=== PATIENT | female | born 1965 | race American Indian/Alaskan Native ===

== ENCOUNTER 2020-05-11 19:11 | Emergency (ER) | payer BC, OTHER ==
[2020-05-11] MEDS ORDERED: Cyclobenzaprine 10 MG Tab PO ONE ×2 (19:12→20:13)
[2020-05-11] MEDS ORDERED: Ciprofloxacin 500 MG Tab PO ONE ×2 (19:12→20:13)
[2020-05-11 19:25] VITALS: BP 177/95; PULSE 72
[2020-05-11 19:43] LABS: ANION GAP 11.7 mEq/L (7-13); CHLORIDE,CL 105 mmol/L (98-107); SODIUM,NA 140 mmol/L (136-145)
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
[2020-05-11] MEDS ORDERED: Acetaminophen 325 MG Tab PO ONE (20:13)
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
[2020-05-11] MEDS ORDERED: Ciprofloxacin 500 MG Tab ONE (20:24)
[2020-05-11] MEDS ORDERED: Cyclobenzaprine 10 MG Tab ONE (20:25)
== END 2020-05-11 20:35 | disposition home or self-care (01) ==
LOC: DL.ED 19:11
DX: M62.838 Other muscle spasm (principal); N39.0 Urinary tract infection, site not specified; V89.2XXA Person injured in unspecified motor-vehicle accident, traffic, initial encounter; Z87.891 Personal history of nicotine dependence
CPT/HCPCS: 36415; 70450; 72125; 80053; 80305-QW; 80307; 81001; 85025; 87086; 99284-25; A9270-GY

== ENCOUNTER 2020-09-07 20:17 | Emergency (ER) | payer BC, OTHER ==
[2020-09-07 20:39] VITALS: BP 158/87; PULSE 72
[2020-09-07 21:01] LABS: ANION GAP 11.9 mEq/L (7-13); CHLORIDE,CL 105 mmol/L (98-107); SODIUM,NA 140 mmol/L (136-145)
--- NOTE | 2020-09-07 21:22 | CR ---
PROCEDURE INFORMATION: Exam: XR Chest, 1 View Exam date and time: 09/07/2020 9:00 PM Age: 55 years old Clinical indication: Other: Chest pain TECHNIQUE: Imaging protocol: XR of the chest Views: 1 view. COMPARISON: No relevant prior studies available. FINDINGS: Lungs: Unremarkable. No consolidation. Pleural space: Unremarkable. No pleural effusion. No pneumothorax. Heart/Mediastinum: Cardiomediastinal silhouette is magnified due to technique. Bones/joints: No acute abnormality or aggressive osseous lesion. IMPRESSION: Negative for acute thoracic pathology.
[2020-09-07] MEDS: GI Cocktail Oral Solution 30 ML PO ONE ×2 (21:32→21:33)
[2020-09-07] MEDS ORDERED: Famotidine 20 MG/2 ML SDV IVPUSH ONE (21:34)
--- NOTE | 2020-09-07 22:09 | EDM.PDOC ---
ED HPI GENERAL MEDICAL PROBLEM - General Chief Complaint: Abdominal Pain Stated Complaint: COVID+ Jul, CHEST PAINS Time Seen by Provider: 09/07/20 20:30 Source of Information: Reports: Patient, RN History Limitations: Reports: No Limitations - History of Present Illness INITIAL COMMENTS - FREE TEXT/NARRATIVE: COVID positive on 08/31, mild SOB no fever or chills. epigastric burning. No chest pain. Rare cough, No fever, rare chills. Epigastric Pain Score (Numeric/FACES): 5 - Related Data Allergies Allergy/AdvReac Type Severity Reaction Status Date / Time No Known Allergies Allergy Verified 09/07/20 20:39 Home Meds: Home Meds Albuterol [Proair HFA] 1 puff IH Q4H PRN #1 inhaler 06/30/20 [Rx] Albuterol/Ipratropium [DuoNeb 3.0-0.5 MG/3 ML] 3 ml .XX Q6HR PRN #60 neb 06/30/20 [Rx] Cefdinir 300 mg PO BID 10 Days #20 capsule 06/30/20 [Rx] methylPREDNISolone [Medrol Dose Pack] 4 mg PO ASDIRECTED 5 Days #1 dospk 06/30/20 [Rx] Past Medical History HEENT History: Reports: None Cardiovascular History: Reports: None Respiratory History: Reports: None Gastrointestinal History: Reports: GERD Genitourinary History: Reports: None HEALTH ECONOMIST History: Reports: None, Other (See Below) Other HEALTH ECONOMIST History: tubal Musculoskeletal History: Reports: None Neurological History: Reports: None Psychiatric History: Reports: Anxiety Endocrine/Metabolic History: Reports: None Hematologic History: Reports: None Immunologic History: Reports: None Oncologic (Cancer) History: Reports: None Dermatologic History: Reports: None - Infectious Disease History Infectious Disease History: Reports: None - Past Surgical History Head Surgeries/Procedures: Reports: None HEENT Surgical History: Reports: Oral Surgery Female Surgical History: Reports: Other (See Below) Social & Family History - Family History Family Medical History: Noncontributory Cardiac: Reports: CAD, High Cholesterol, Hypertension, [place] - Tobacco Use Tobacco Use Status *Q: Never Tobacco User Second Hand Smoke Exposure: No - Caffeine Use Caffeine Use: Reports: Soda - Recreational Drug Use Recreational Drug Use: No - Living Situation & Occupation Living situation: Reports: with Family Occupation: Employed ED ROS GENERAL - Review of Systems Review Of Systems: Comprehensive ROS is negative, except as noted in HPI. ED EXAM, GI/ABD - Physical Exam Exam: See Below Exam Limited By: No Limitations General Appearance: Alert, Anxious Eyes: Bilateral: EOMI Ears: Normal External Exam Throat/Mouth: Normal Inspection Head: Atraumatic, Normocephalic Neck: Normal Inspection Respiratory/Chest: No Respiratory Distress, Lungs Clear, Normal Breath Sounds Cardiovascular: Normal Peripheral Pulses, Regular Rate, Rhythm, No Edema GI/Abdominal Exam: Normal Bowel Sounds, Soft, Tender (mild mid epigastric) Extremities: Normal Inspection Neurological: Alert, Oriented, Normal Cognition Course - Vital Signs Last Recorded V/S: Last Vital Signs Temp 97.6 F 09/07/20 20:27 Pulse 72 09/07/20 20:27 Resp 19 09/07/20 20:27 BP 158/87 H 09/07/20 20:27 Pulse Ox 99 09/07/20 20:27 - Orders/Labs/Meds Labs: Laboratory Tests 09/07/20 09/07/20 09/07/20 Range/Units 20:35 20:35 20:35 WBC 7.0 (5.0-10.0) 10^3/uL RBC 4.45 (4.2-5.4) 10^6/uL Hgb 13.3 (12.0-16.0) g/dL Hct 41.1 (37.0-47.0) % MCV 92.4 (80-100) fL MCH 29.9 (27.0-34.0) pg MCHC 32.4 L (33.0-35.0) g/dL Plt Count 233 (150-450) 10^3/uL Neut % (Auto) 52.6 (42.2-75.2) % Lymph % (Auto) 29.8 (20.5-50.1) % [place] % (Auto) 10.7 H (2-8) % Eos % (Auto) 6.2 H (1.0-3.0) % Baso % (Auto) 0.7 (0.0-1.0) % D-Dimer, Quantitative 449 H (0-400) ng/mL Sodium 140 (136-145) mmol/L Potassium 3.9 (3.5-5.1) mmol/L Chloride 105 (98-107) mmol/L Carbon Dioxide 27 (21-32) mmol/L Anion Gap 11.9 (7-13) mEq/L BUN 8 (7-18) mg/dL Creatinine 0.90 (0.55-1.02) mg/dL Est Cr Clr Drug Dosing 62.80 mL/min Estimated GFR (MDRD) > 60 BUN/Creatinine Ratio 8.9 (No establ ref range) Glucose 97 (74-99) mg/dL Calcium 9.1 (8.5-10.1) mg/dL Total Bilirubin 0.3 (0.2-1.0) mg/dL AST 9 L (15-37) U/L ALT 30 (14-59) U/L Alkaline Phosphatase 102 (46-116) U/L Troponin I < 0.017 (0.000-0.056) ng/mL Total Protein 7.4 (6.4-8.2) g/dL Albumin 3.6 (3.4-5.0) g/dL Globulin 3.8 Albumin/Globulin Ratio 0.9 Amylase 45 (25-115) U/L Lipase 109 (73-393) U/L Meds: Medications Discontinued Medications Generic Name Dose Route Start Last Admin Trade Name Freq PRN Reason Stop Dose Admin Al Hydroxide/Mg Hydroxide 30 ml 09/07/20 21:29 09/07/20 21:33 Gi Cocktail PO 09/07/20 21:30 Not Given ONETIME ONE Famotidine 20 mg 09/07/20 21:34 09/07/20 21:49 Pepcid IVPUSH 09/07/20 21:35 Not Given ONETIME ONE - Re-Assessments/Exams Free Text/Narrative Re-Assessment/Exam: Reports sx resolved, refused GI cocktail and Pepcid. Departure - Departure Time of Disposition: 22:06 Disposition: Home, Self-Care 01 Condition: Good Clinical Impression: Dyspepsia, Anxiety - Discharge Information *PRESCRIPTION DRUG MONITORING PROGRAM REVIEWED*: No *COPY OF PRESCRIPTION DRUG MONITORING REPORT IN PATIENT FRANCIS: No Instructions: Nausea and Vomiting, Adult, [id number] Forms: ED Department Discharge Additional Instructions: bland diet limit caffeine encourage fluids follow up with primary care if mild symptoms continue urgent follow up fever chill vomiting diarrhea severe difficulty breathing Sepsis Event Note (ED) - Evaluation Sepsis Screening Result: No Definite Risk - Focused Exam Vital Signs: Vital Signs Temp Pulse Resp BP Pulse Ox 09/07/20 20:27 97.6 F 72 19 158/87 H 99
== END 2020-09-07 22:16 | disposition home or self-care (01) ==
LOC: DL.ED 20:17
DX: F41.9 Anxiety disorder, unspecified (principal); R10.13 Epigastric pain
CPT/HCPCS: 36415; 71045; 80053; 82150; 83690; 84484; 85025; 85379; 93005; 99285-25; A9270-GY

== ENCOUNTER 2021-08-07 16:44 | Emergency (ER) | payer BC, OTHER ==
[2021-08-07 17:49] VITALS: BP 137/76; PULSE 62
--- NOTE | 2021-08-07 18:20 | CR ---
PROCEDURE INFORMATION: Exam: XR Right Shoulder Exam date and time: 08/07/2021 5:43 PM Age: 56 years old Clinical indication: Injury or trauma; Fall; Swelling (edema); Injury date: Today; Injury details: Patient fell and bruised right shoulder; Additional info: Fall, bruised, pain TECHNIQUE: Imaging protocol: XR Right shoulder. Views: 2 or more views. COMPARISON: No relevant prior studies available. FINDINGS: Bones/joints: No acute fracture or dislocation. Soft tissues: Unremarkable. IMPRESSION: No acute findings.
--- NOTE | 2021-08-07 18:23 | CR ---
PROCEDURE INFORMATION: Exam: XR Right Forearm Exam date and time: 08/07/2021 5:46 PM Age: 56 years old Clinical indication: Injury or trauma; Fall; Sprain or strain; Arm, lower; Injury date: Today; Injury details: Patient fell, right side painful proximal forearm; Additional info: Fall, pain, swelling TECHNIQUE: Imaging protocol: XR Right forearm. Views: 2 views. COMPARISON: No relevant prior studies available. FINDINGS: Bones/joints: No acute fracture or dislocation. Soft tissues: Dorsal soft tissue swelling. IMPRESSION: No acute osseous abnormality.
--- NOTE | 2021-08-07 18:32 | EDM.PDOC ---
ED HPI GENERAL MEDICAL PROBLEM - General Chief Complaint: Upper Extremity Injury/Pain Stated Complaint: FELL HURT RIGHT SHOULDER Time Seen by Provider: 08/07/21 18:25 Source of Information: Reports: Patient History Limitations: Reports: No Limitations - History of Present Illness INITIAL COMMENTS - FREE TEXT/NARRATIVE: This 56 yo female patient reports to the ED with right shoulder and right forearm pain and bruising. The patient reports she stepped on a board outside her office and got her foot caught causing her to fall onto her right shoulder. Onset: Today Duration: Hour(s):, Constant Location: Reports: Upper Extremity, Right Quality: Reports: Ache, Dull Severity: Moderate Improves with: Reports: None Worsens with: Reports: None Context: Reports: Activity Associated Symptoms: Reports: No Other Symptoms - Related Data Allergies Allergy/AdvReac Type Severity Reaction Status Date / Time clindamycin Allergy rash, Verified 08/07/21 17:33 throat swelled Home Meds: Home Meds . 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, Other (See Below) Other LIGHTING FIXTURES DECORATOR History: tubal Musculoskeletal History: Reports: None Neurological History: Reports: None Psychiatric History: Reports: Anxiety Endocrine/Metabolic History: Reports: None Hematologic History: Reports: None Immunologic History: Reports: None Oncologic (Cancer) History: Reports: None Dermatologic History: Reports: None - Infectious Disease History Infectious Disease History: Reports: None, Novel Coronavirus - Past Surgical History Head Surgeries/Procedures: Reports: None HEENT Surgical History: Reports: Oral Surgery Other HEENT Surgeries/Procedures: wisdom teeth removal. 6 teeth extracted 03/15/21 d/t infection GI Surgical History: Reports: None Female Surgical History: Reports: Other (See Below) Other Female Surgeries/Procedures: right fallopian tube removed d/t ectopic pregnacy Social & Family History - Family History Family Medical History: No Pertinent Family History Cardiac: Reports: CAD, High Cholesterol, Hypertension, CO - Tobacco Use Tobacco Use Status *Q: Current Status Unknown - Caffeine Use Caffeine Use: Reports: Soda - Living Situation & Occupation Living situation: Reports: with Family Occupation: Employed Review of Systems - Review of Systems Review Of Systems: Comprehensive ROS is negative, except as noted in HPI. ED EXAM, GENERAL - Physical Exam Exam: See Below Exam Limited By: No Limitations General Appearance: Alert, WD/WN, Mild Distress Eye Exam: Bilateral Eye: EOMI, Normal Inspection, PERRL Ears: Normal External Exam, Normal Canal, Hearing Grossly Normal, Normal TMs Nose: Normal Inspection, Normal Mucosa, No Blood Throat/Mouth: Normal Inspection, Normal Lips, Normal Teeth, Normal Gums, Normal Oropharynx, Normal Voice, No Airway Compromise Head: Atraumatic, Normocephalic Neck: Normal Inspection, Supple, Non-Tender, Full Range of Motion Respiratory/Chest: No Respiratory Distress, Lungs Clear, Normal Breath Sounds, No Accessory Muscle Use, Chest Non-Tender Cardiovascular: Normal Peripheral Pulses, Regular Rate, Rhythm, No Edema, No Gallop, No JVD, No Murmur, No Rub GI/Abdominal: Normal Bowel Sounds, Soft, Non-Tender, No Organomegaly, No Distention, No Abnormal Bruit, No Mass (Female) Exam: Deferred Rectal (Female) Exam: Deferred Back Exam: Normal Inspection, Full Range of Motion, NT Extremities: Arm Pain (Right shoulder and right forearm pain with bruising) Neurological: Alert, Oriented, CN II-XII Intact, Normal Cognition, Normal Gait, Normal Reflexes, No Motor/Sensory Deficits Psychiatric: Normal Affect, Normal Mood Skin Exam: Warm, Dry, Intact, Normal Color, No Rash Lymphatic: No Adenopathy Course - Vital Signs Last Recorded V/S: Last Vital Signs Temp 98.4 F 08/07/21 17:28 Pulse 62 08/07/21 17:28 Resp 16 08/07/21 17:28 BP 137/76 08/07/21 17:28 Pulse Ox 97 08/07/21 17:28 Departure - Departure Time of Disposition: 18:29 Disposition: Home, Self-Care 01 Condition: Fair Clinical Impression: Fall from ground level Contusion of right shoulder Qualifiers: Encounter type: initial encounter Qualified Code(s): S40.011A - Contusion of right shoulder, initial encounter Contusion of right forearm Qualifiers: Encounter type: initial encounter Qualified Code(s): S50.11XA - Contusion of right forearm, initial encounter - Discharge Information *PRESCRIPTION DRUG MONITORING PROGRAM REVIEWED*: Not Applicable *COPY OF PRESCRIPTION DRUG MONITORING REPORT IN PATIENT FRANCIS: Not Applicable Instructions: Contusion Forms: ED Department Discharge Care Plan Goals: The patient was advised of the examination and x-ray results during the visit. The patient was encouraged to rest and ice the areas of concern. If the patient continues to have pain in the areas, the patient should follow-up with her primary care facility in about 1 week for continued evaluation (MRI) and management. If the patient has any additional symptoms or concerns, the patient should either return to the emergency department or visit her primary care facility. Sepsis Event Note (ED) - Focused Exam Vital Signs: Vital Signs Temp Pulse Resp BP Pulse Ox 08/07/21 17:28 98.4 F 62 16 137/76 97
== END 2021-08-07 18:26 | disposition home or self-care (01) ==
LOC: DL.ED 16:44
DX: S40.011A Contusion of right shoulder, initial encounter (principal); S50.11XA Contusion of right forearm, initial encounter; Z88.1 Allergy status to other antibiotic agents; W18.39XA Other fall on same level, initial encounter
CPT/HCPCS: 73030-RT; 73090-RT; 99283-25

== ENCOUNTER 2022-01-08 18:34 | Emergency (ER) | payer BC, OTHER ==
[2022-01-08] MEDS ORDERED: methylPREDNISolone Sodium Succinate 125 MG/2 ML SDV IVPUSH ONE (19:18)
[2022-01-08] MEDS ORDERED: diphenhydrAMINE 50 MG/ML SDV IVPUSH ONE (19:18)
[2022-01-08 19:44] VITALS: BP 134/89; PULSE 88
== END 2022-01-08 20:43 | disposition home or self-care (01) ==
LOC: DL.ED 18:34
DX: T78.40XA Allergy, unspecified, initial encounter (principal); Z88.1 Allergy status to other antibiotic agents; Z91.048 Other nonmedicinal substance allergy status; Z87.891 Personal history of nicotine dependence
CPT/HCPCS: 96374; 96375; 99283; J1200; J2930

== ENCOUNTER 2022-09-26 16:53 | Emergency (ER) | payer BC, OTHER ==
[2022-09-26] MEDS ORDERED: Sodium Chloride 0.9% 10 ML Syringe FLUSH PRN (17:06)
[2022-09-26 17:30] VITALS: BP 164/78; PULSE 65
[2022-09-26 17:48] LABS: ANION GAP 10.5 mEq/L (7-13)
== END 2022-09-26 19:49 | disposition home or self-care (01) ==
LOC: DL.ED 16:53
DX: K21.00 Gastro-esophageal reflux disease with esophagitis, without bleeding (principal); E66.9 Obesity, unspecified; Z68.32 Body mass index [BMI] 32.0-32.9, adult; Z88.1 Allergy status to other antibiotic agents; Z91.041 Radiographic dye allergy status; Z86.16 Personal history of COVID-19; Z87.891 Personal history of nicotine dependence
CPT/HCPCS: 36415; 71045; 80053; 82150; 83690; 84484; 85025; 85379; 93005; 99285

== ENCOUNTER 2022-09-27 19:47 | Emergency (ER) | payer BC, OTHER ==
[2022-09-27 20:26] VITALS: BP 144/84; PULSE 86
== END 2022-09-27 20:46 | disposition home or self-care (01) ==
LOC: DL.ED 19:47
DX: M62.830 Muscle spasm of back (principal); E66.9 Obesity, unspecified; Z68.34 Body mass index [BMI] 34.0-34.9, adult; Z88.1 Allergy status to other antibiotic agents; Z91.041 Radiographic dye allergy status; W22.8XXA Striking against or struck by other objects, initial encounter
CPT/HCPCS: 99283

== ENCOUNTER 2025-05-18 17:26 | Emergency (ER) | payer BC, OTHER ==
[2025-05-18 17:41] LABS: BASOPHILS PERCENT AUTO 0.5 % (0.0-1.0); EOSINOPHILS PERCENT AUTO 5.4 % (1.0-3.0); HEMOGLOBIN 14.6 g/dL (12.0-16.0); LYMPHOCYTES PERCENT AUTO 28.2 % (20.5-50.1); MEAN CORPUSCULAR HEMOGLOBIN 30.2 pg (27.0-34.0); MEAN CORPUSCULAR HGB CONC 32.4 g/dL (33.0-35.0); MONOCYTES PERCENT AUTO 10.2 % (2-8); NEUTROPHILS PERCENT AUTO 55.7 % (42.2-75.2); PLATELET COUNT,PLT 241 10^3/uL (150-450); RED BLOOD CELL COUNT 4.84 10^6/uL (4.2-5.4); WHITE BLOOD CELL COUNT,WBC 7.7 10^3/uL (5.0-10.0)
[2025-05-18 18:02] LABS: A/G RATIO 0.9; ALBUMIN 3.7 g/dL (3.4-5.0); ANION GAP 10.9 mEq/L (7-13); BILIRUBIN TOTAL 0.5 mg/dL (0.2-1.0); CALCIUM 9.6 mg/dL (8.5-10.1); CREATININE 0.92 mg/dL (0.55-1.02); EST CRCL DRUG DOSING (CG) 57.78 mL/min; POTASSIUM,K 3.9 mmol/L (3.5-5.1)
[2025-05-18 18:06] LABS: INR 0.9 (0.9-1.2); PROTHROMBIN TIME 9.3 SEC (9.0-12.0)
[2025-05-18 18:18] VITALS: BP 167/82; PULSE 59
== END 2025-05-18 18:41 | disposition home or self-care (01) ==
LOC: DL.ED 17:26
DX: R07.9 Chest pain, unspecified (principal); Z88.1 Allergy status to other antibiotic agents; Z91.041 Radiographic dye allergy status; Z79.899 Other long term (current) drug therapy; Z86.16 Personal history of COVID-19
CPT/HCPCS: 36415; 71045; 80053; 83690; 84484; 85025; 85610; 99285